=== PATIENT | female | born 1960 | race Caucasian/White ===

== ENCOUNTER 2016-11-11 10:07 | Emergency (ER) | payer OTHER ==
[2016-11-11 10:27] LABS: Bilirubin Negative (Negative); Blood, Urine Small (Negative); Glucose, Urine (Dipstick) >=1000 mg/dL (Negative); Ketone, Urine Negative (Negative); Nitrite Positive (Negative); Protein, Urine (Dipstick) 100 mg/dL (Neg-Trace); Urobilinogen 0.2 mg/dL (0.2-1.0)
[2016-11-11 10:56] LABS: Bacteria/HPF 3+ HPF (None Seen); Transitional Epithelial 0-3 HPF (0-3)
[2016-11-11] MEDS ORDERED: Cephalexin 500 MG CAP ONE (11:07)
--- NOTE | 2016-11-11 11:16 | ERRECORD ---
[facility] EMERGENCY RECORD HPI UTI (10:51 AGRE) CHIEF COMPLAINT: Patient presents for evaluation of urinary tract infection signs or symptoms:. HISTORIAN: History provided by patient, FREGUENT, PAINFUL, FOUL SMELLING, CLOUDY URINE TODAY. NO NAUSEA, VOMITING, FEVER OR CHILLS. NO OTHER SYMPTOMS. LOCATION: No localizing symptoms. QUALITY: Pain is dull in nature, described as BURNING ON URINATION. TIME COURSE: Gradual onset of symptoms, There has been no change in the patient's symptoms over time. ASSOCIATED WITH FEMALE: No associated symptoms. EXACERBATED BY: Patient's condition exacerbated by urination. RELIEVED BY: Patient's condition relieved by nothing. ROS (10:52 AGRE) CONSTITUTIONAL: Historian denies chills, denies fever, denies lethargy, denies malaise. EYES: Historian denies eye pain, denies eye redness. ENT: Historian denies rhinorrhea, denies sinus pain, denies sore throat. CARDIOVASCULAR: Historian denies chest pain, denies dyspnea on exertion. RESPIRATORY: Historian denies cough, denies shortness of breath. GI: Historian denies abdominal pain, denies nausea, denies vomiting. GENITOURINARY FEMALE: Historian reports dysuria, reports frequency, denies hematuria, denies urinary retention, denies vaginal bleeding, denies vaginal discharge, denies vaginal itching. MUSCULOSKELETAL: Historian denies back pain, denies neck pain. SKIN: Negative skin review of systems, Historian denies skin changes, denies skin lesions. NEUROLOGIC: Historian denies headache, denies mental status changes. PSYCHIATRIC: Negative psychiatric review of systems, Historian denies anxiety. PAST MEDICAL HISTORY (10:15 MSPE) MEDICAL HISTORY: Flu vaccine up to date, Tetanus immunization up to date, Past medical history includes musculoskeletal disorder, gout, Past medical history includes neurological disease, peripheral neuropathy, Past medical history includes vascular disease history, deep vein thrombosis, Past medical history includes history of diabetes, Past medical history includes history of hypertension. FEMALE SURGICAL HISTORY: Surgical history of spinal surgery, lumbar,x 3 TUBAL . PSYCHIATRIC HISTORY: No previous psychiatric history. SOCIAL HISTORY: Patient has no smoking history, Patient denies alcohol use, Patient denies drug use. &a-1R&a+25V*p+0X*v7386Y*c202B*c15G*c2P*p-0X&a-25V&a+1R Name: Blanca Leo : 1960 F56 MedRec: [id number] AcctNum: [id number] Prepared: MonNov 11, 2016 11:21 by Interface Page [address] [facility] EMERGENCY RECORD KNOWN ALLERGIES Lyrica: - MAKES HER SWELL AND CONSTIPATION CURRENT MEDICATIONS (10:13 MSPE) atenolol: TABLET : Strength - 25 mg : ORAL Patient Dose: 1 tab(s) Oral once a day. cloNIDine HCl: TABLET : Strength - 0.1 mg : ORAL Patient Dose: 2 tab(s) Oral 2 times a day. metFORMIN: TABLET : Strength - 500 mg : ORAL Patient Dose: 1 tab(s) Oral 2 times a day. NovoLOG: VIAL (ML) : Strength - 100 unit/mL : SUBCUTANEOUS Patient Dose: 10 units Subcutaneous As Needed. gabapentin: TABLET : Strength - 600 mg : ORAL Patient Dose: 2 tab(s) Oral 2 times a day. glimepiride: TABLET : Strength - 4 mg : ORAL Patient Dose: 1 tab(s) Oral 2 times a day. VITAL SIGNS (10:13 MSPE) VITAL SIGNS: BP: 116/56, Pulse: 74, Resp: 18, Temp: 96.4 (Oral), Pain: 2, O2 sat: 98 on Room Air, Time: 11/11/2016 10:13. PHYSICAL EXAM CONSTITUTIONAL: Vital signs reviewed, Patient afebrile, Patient appears non toxic, Patient appears pain free, Patient alert and oriented to person, place and time, NURSES NOTES REVIEWED. (10:52 AGRE) HEAD: Head exam included findings of head atraumatic, normocephalic. (10:52 AGRE) EYES: Eye exam included findings of eyelids normal to inspection, Extraocular muscles intact, Conjunctiva normal, Sclera normal. (10:52 AGRE) ENT: Ear exam normal, Nose exam normal, Mouth exam normal. (10:52 AGRE) NECK: Neck exam included findings of normal range of motion, no meningeal signs. (10:52 AGRE) RESPIRATORY CHEST: Respiratory exam included findings of no respiratory distress, Chest exam included findings of chest movement symmetrical. (10:52 AGRE) CARDIOVASCULAR: Cardiovascular assessment normal, Cardiovascular exam included findings of heart rate regular rate and rhythm, Heart sounds normal. (10:53 AGRE) ABDOMEN FEMALE: Abdominal exam normal, Abdominal exam included findings of abdomen nontender, Bowel sounds normal, Liver normal, &a-1R&a+25V*p+0X*l8016K*c202B*c15G*c2P*p-0X&a-25V&a+1R Name: Blanca Leo : 1960 F56 MedRec: [id number] AcctNum: [id number] Prepared: MonNov 11, 2016 11:21 by Interface Page [address] [facility] EMERGENCY RECORD Spleen normal, no distension, no mass. (10:52 AGRE) BACK: Back exam included findings of normal inspection, range of motion normal, no costovertebral angle tenderness. (10:52 AGRE) UPPER EXTREMITY: Upper extremity exam included findings of inspection normal, Range of motion normal. (10:52 AGRE) LOWER EXTREMITY: Lower extremity exam included findings of inspection normal, Range of motion normal. (10:52 AGRE) NEURO: Neuro exam findings include patient oriented to person, place and time, Speech normal, Gait normal, Memory normal, Cranial nerves intact, no focal motor deficits. (10:52 AGRE) SKIN: Skin exam included findings of skin warm, dry, and normal in color. (10:52 AGRE) PSYCHIATRIC: Psychiatric exam normal, Normal affect. (10:52 AGRE) MEDICATION ADMINISTRATION SUMMARY Drug Name: Pyridium, Dose Ordered: 200 mg, Route: Oral, Status: Canceled, Time: 11:15 11/11/2016, Drug Name: Keflex, Dose Ordered: 1000 mg, Route: Oral, Status: Given, Time: 11:10 11/11/2016, Detailed record available in Medication Service section. DOCTOR NOTES (11:05 AGRE) TEXT: DISCUSSED WITH PATIENT AND FAMILY THE FINDINGS ON EXAM, RESULTS OF URINE, TREATMENT FOR HER UTI, PAIN MANAGEMENT, NEED FOR FOLLOW UP. SHE EXPRESSED UNDERSTANDING AND AGREEMENT. PATIENT STATUS: Patient has improved since arrival to emergency department. PATIENT PLAN: The patient will be discharged. DATA REVIEWED: Lab data reviewed, Discussed with family. PROBLEM LIST No recorded problems DIAGNOSIS (11:02 AGRE) FINAL: PRIMARY: urinary tract infection. PRESCRIPTION (11:03 AGRE) Pyridium: TABLET : 200 mg : ORAL : Quantity: 1 Unit: tab(s) Route: ORAL Schedule: 3 times a day Dispense: 9 May substitute. Refills: No Refills . NOTES: No Refills. Augmentin: TABLET : 875 mg-125 mg : ORAL : Quantity: 1 Unit: tab(s) Route: ORAL Schedule: every 12 hours Dispense: 20 Unit: tab(s) May substitute. Refills: No Refills . NOTES: ^s=No Refills No Refills. DISPOSITION &a-1R&a+25V*p+0X*a4825U*c202B*c15G*c2P*p-0X&a-25V&a+1R Name: Blanca Leo : 1960 F56 MedRec: [id number] AcctNum: [id number] Prepared: MonNov 11, 2016 11:21 by Interface Page [address] [facility] EMERGENCY RECORD PATIENT: Disposition Type: Discharge, Disposition: *Discharge Home, Condition: Improved. (11:02 AGRE) Patient left the department. (11:18 MSPE) Rodriguez: AGRE=MD Ricardo, Tenzin MSPE=DILAN Hughes, Larissa &a-1R&a+25V*p+0X*l3569C*c202B*c15G*c2P*p-0X&a-25V&a+1R Name: Blanca Leo : 1960 F56 MedRec: [id number] AcctNum: [id number] Prepared: MonNov 11, 2016 11:21 by Interface Page 4 of 4 pMD MTDD
--- NOTE | 2016-11-11 11:23 | PICIS ---
[facility] EMERGENCY RECORD TRIAGE (10:12 MSPE) TRIAGE NOTES: possible UTI; c/o cloudy urine. Onset this a.m. Suprapubic discomfort. (10:12 MSPE) PATIENT: NAME: Blanca Leo, AGE: 56, GENDER: female, : Sat 1960, TIME OF GREET: MonNov 11, 2016 10:07, PREFERRED LANGUAGE: Macedonian, ETHNICITY: Not or , ECODE BILLING MAP: [facility], SSN: [id number], Zip Code: [address], KG WEIGHT: [phone], PHONE: , , , PERSON ID: [id number], PCP: Holly WEN ZENIA. (10:12 MSPE) COMPLAINT: PAINFUL URINATION. (10:12 MSPE) ADMISSION: URGENCY: 4 Non Urgent, ADMISSION SOURCE: Home, TRANSPORT: CAR, BED: ER -05. (10:12 MSPE) SIRS SCORING: Heart Rate 55-109 (0), Temp range 93.1-96.7 (1), respiratory rate 12-24 (0), Mental Status altered: no (0), Total SIRS Score 1. (10:15 MSPE) LMP: LMP: Not Applicable. (10:15 MSPE) PROVIDERS: TRIAGE NURSE: Larissa Hughes RN. (10:12 MSPE) PREVIOUS VISIT ALLERGIES: Lyrica. (10:12 MSPE) Lyrica. (10:15 MSPE) KNOWN ALLERGIES Lyrica: - MAKES HER SWELL AND CONSTIPATION CURRENT MEDICATIONS (10:13 MSPE) atenolol: TABLET : Strength - 25 mg : ORAL Patient Dose: 1 tab(s) Oral once a day. cloNIDine HCl: TABLET : Strength - 0.1 mg : ORAL Patient Dose: 2 tab(s) Oral 2 times a day. metFORMIN: TABLET : Strength - 500 mg : ORAL Patient Dose: 1 tab(s) Oral 2 times a day. NovoLOG: VIAL (ML) : Strength - 100 unit/mL : SUBCUTANEOUS Patient Dose: 10 units Subcutaneous As Needed. gabapentin: TABLET : Strength - 600 mg : ORAL Patient Dose: 2 tab(s) Oral 2 times a day. glimepiride: TABLET : Strength - 4 mg : ORAL Patient Dose: 1 tab(s) Oral 2 times a day. VITAL SIGNS (10:13 MSPE) VITAL SIGNS: BP: 116/56, Pulse: 74, Resp: 18, Temp: 96.4 (Oral), Pain: 2, O2 sat: 98 on Room Air, Time: 11/11/2016 10:13. NURSING ASSESSMENT: GENITOURINARY (10:15 MSPE) CONSTITUTIONAL: Patient arrives, personal rolling &a-1R&a+25V*p+0X*q9815J*c202B*c15G*c2P*p-0X&a-25V&a+1R Name: Blanca Leo : 1960 F56 MedRec: [id number] AcctNum: [id number] Prepared: MonNov 11, 2016 11:21 by Interface Page 1 of 6 pMD [facility] EMERGENCY RECORD walker, Gait steady, History obtained from patient, Patient appears comfortable, Patient cooperative, Patient alert, Oriented to person, place and time, Skin warm, Skin dry. PAIN FEMALE: to the suprapubic region. GENITOURINARY FEMALE: Associated with urinary complaints, dysuria, Notes: reportscloudy urine - onset this a.m. NURSING PROCEDURE: DISCHARGE NOTE (11:13 MSPE) DISCHARGE: Patient discharged to home, ambulating with walker, Summary of Care printed/ provided, Discharge instructions given to patient, Simple or moderate discharge teaching performed, Prescriptions given and instructions on side effects given, Above person(s) verbalized understanding of discharge instructions and follow-up care, Patient treated and evaluated by physician. BELONGINGS: Belongings remain with patient. NURSING PROCEDURE: URINE COLLECTION (10:20 MSPE) URINE COLLECTION FEMALE: Urine collection indicated for dysuria, Urine collected by mid-stream clean catch, urine yellow in color, and cloudy, Specimen labeled in the presence of the patient and sent to lab. ORDER DETAILS Order Name: Culture, Urine, Status: Active, Time: 11:00 11/11/2016, User: KEON, - Ordered for: MD Silva Andrea, - Entered by: MD Silva Andrea - MonNov 11, 2016 11:00, - Quantity: 1, Order Name: Urinalysis w/ Rflx Microscopic, Status: Active, Time: 10:17 11/11/2016, User: SOLOMON, - Ordered for: MD Silva Andrea, - Entered by: DILAN Hughes Marilyn - MonNov 11, 2016 10:17, - Quantity: 1. MEDICATION ADMINISTRATION SUMMARY Drug Name: Pyridium, Dose Ordered: 200 mg, Route: Oral, Status: Canceled, Time: 11:15 11/11/2016, Drug Name: Keflex, Dose Ordered: 1000 mg, Route: Oral, Status: Given, Time: 11:10 11/11/2016, Detailed record available in Medication Service section. MEDICATION SERVICE Keflex: Order: Keflex (cephalexin monohydrate) - Dose: 1000 mg : Oral Ordered by: Tenzin Silva MD Entered by: Tenzin Silva MD MonNov 11, 2016 11:00 , &a-1R&a+25V*p+0X*x9606L*c202B*c15G*c2P*p-0X&a-25V&a+1R Name: Blanca Leo : 1960 F56 MedRec: [id number] AcctNum: [id number] Prepared: MonNov 11, 2016 11:21 by Interface Page 2 of 6 pMD [facility] EMERGENCY RECORD Acknowledged by: Larissa Hughes RN MonNov 11, 2016 11:04 Documented as given by: Larissa Hughes RN MonNov 11, 2016 11:10 Patient, Medication, Dose, Route and Time verified prior to administration. Amount given: 1000mg, Site: Medication administered P.O., Patient appears Awake and alert- acceptable, Correct patient, time, route, dose and medication confirmed prior to administration, Patient advised of actions and side-effects prior to administration, Allergies confirmed and medications reviewed prior to administration, Patient in position of comfort, Side rails up, Cart in lowest position. Pyridium: Order: Pyridium (phenazopyridine HCl) - Dose: 200 mg : Oral Ordered by: Tenzin Silva MD Entered by: Tenzin Silva MD MonNov 11, 2016 11:01 , Acknowledged by: Larissa Hughes RN MonNov 11, 2016 11:04. (CANCELED) Pyridium: Originally ordered MonNov 11, 2016 11:01 Cancel reason: Change in medication plan:med unavailable in [place]; Dr Ricardo hamlin. (11:15 MSPE) HPI UTI (10:51 AGRE) CHIEF COMPLAINT: Patient presents for evaluation of urinary tract infection signs or symptoms:. HISTORIAN: History provided by patient, FREGUENT, PAINFUL, FOUL SMELLING, CLOUDY URINE TODAY. NO NAUSEA, VOMITING, FEVER OR CHILLS. NO OTHER SYMPTOMS. LOCATION: No localizing symptoms. QUALITY: Pain is dull in nature, described as BURNING ON URINATION. TIME COURSE: Gradual onset of symptoms, There has been no change in the patient's symptoms over time. ASSOCIATED WITH FEMALE: No associated symptoms. EXACERBATED BY: Patient's condition exacerbated by urination. RELIEVED BY: Patient's condition relieved by nothing. ROS (10:52 AGRE) CONSTITUTIONAL: Historian denies chills, denies fever, denies lethargy, denies malaise. EYES: Historian denies eye pain, denies eye redness. ENT: Historian denies rhinorrhea, denies sinus pain, denies sore throat. CARDIOVASCULAR: Historian denies chest pain, denies dyspnea on exertion. RESPIRATORY: Historian denies cough, denies shortness of breath. GI: Historian denies abdominal pain, denies nausea, denies vomiting. GENITOURINARY FEMALE: Historian reports dysuria, reports frequency, denies hematuria, denies urinary retention, denies vaginal bleeding, denies vaginal discharge, denies vaginal itching. MUSCULOSKELETAL: Historian denies back pain, denies neck pain. &a-1R&a+25V*p+0X*w2592K*c202B*c15G*c2P*p-0X&a-25V&a+1R Name: Blanca Leo : 1960 F56 MedRec: [id number] AcctNum: [id number] Prepared: MonNov 11, 2016 11:21 by Interface Page 3 of 6 pMD [facility] EMERGENCY RECORD SKIN: Negative skin review of systems, Historian denies skin changes, denies skin lesions. NEUROLOGIC: Historian denies headache, denies mental status changes. PSYCHIATRIC: Negative psychiatric review of systems, Historian denies anxiety. PAST MEDICAL HISTORY (10:15 MSPE) MEDICAL HISTORY: Flu vaccine up to date, Tetanus immunization up to date, Past medical history includes musculoskeletal disorder, gout, Past medical history includes neurological disease, peripheral neuropathy, Past medical history includes vascular disease history, deep vein thrombosis, Past medical history includes history of diabetes, Past medical history includes history of hypertension. FEMALE SURGICAL HISTORY: Surgical history of spinal surgery, lumbar,x 3 TUBAL . PSYCHIATRIC HISTORY: No previous psychiatric history. SOCIAL HISTORY: Patient has no smoking history, Patient denies alcohol use, Patient denies drug use. PHYSICAL EXAM CONSTITUTIONAL: Vital signs reviewed, Patient afebrile, Patient appears non toxic, Patient appears pain free, Patient alert and oriented to person, place and time, NURSES NOTES REVIEWED. (10:52 AGRE) HEAD: Head exam included findings of head atraumatic, normocephalic. (10:52 AGRE) EYES: Eye exam included findings of eyelids normal to inspection, Extraocular muscles intact, Conjunctiva normal, Sclera normal. (10:52 AGRE) ENT: Ear exam normal, Nose exam normal, Mouth exam normal. (10:52 AGRE) NECK: Neck exam included findings of normal range of motion, no meningeal signs. (10:52 AGRE) RESPIRATORY CHEST: Respiratory exam included findings of no respiratory distress, Chest exam included findings of chest movement symmetrical. (10:52 AGRE) CARDIOVASCULAR: Cardiovascular assessment normal, Cardiovascular exam included findings of heart rate regular rate and rhythm, Heart sounds normal. (10:53 AGRE) ABDOMEN FEMALE: Abdominal exam normal, Abdominal exam included findings of abdomen nontender, Bowel sounds normal, Liver normal, Spleen normal, no distension, no mass. (10:52 AGRE) BACK: Back exam included findings of normal inspection, range of motion normal, no costovertebral angle tenderness. (10:52 AGRE) UPPER EXTREMITY: Upper extremity exam included findings of inspection normal, Range of motion normal. (10:52 AGRE) LOWER EXTREMITY: Lower extremity exam included findings of inspection normal, Range of motion normal. (10:52 AGRE) &a-1R&a+25V*p+0X*w6899K*c202B*c15G*c2P*p-0X&a-25V&a+1R Name: Blanca Leo : 1960 F56 MedRec: [id number] AcctNum: [id number] Prepared: MonNov 11, 2016 11:21 by Interface Page 4 of 6 pMD [facility] EMERGENCY RECORD NEURO: Neuro exam findings include patient oriented to person, place and time, Speech normal, Gait normal, Memory normal, Cranial nerves intact, no focal motor deficits. (10:52 AGRE) SKIN: Skin exam included findings of skin warm, dry, and normal in color. (10:52 AGRE) PSYCHIATRIC: Psychiatric exam normal, Normal affect. (10:52 AGRE) LAB INTERPRETATION (11: AGRE) INTERPRETATION: Urinalysis abnormal, positive for leukocytes, positive for erythrocytes, positive for nitrites, positive for bacteria, positive for glucose, positive for protein. EVENTS TRANSFER: Triage to Emergency Emergency Room -05. (MonNov 11, 2016 10:12 MSPE) Removed from Emergency Emergency Room -05. (11:18 MSPE) DOCTOR NOTES (11: AGRE) TEXT: DISCUSSED WITH PATIENT AND FAMILY THE FINDINGS ON EXAM, RESULTS OF URINE, TREATMENT FOR HER UTI, PAIN MANAGEMENT, NEED FOR FOLLOW UP. SHE EXPRESSED UNDERSTANDING AND AGREEMENT. PATIENT STATUS: Patient has improved since arrival to emergency department. PATIENT PLAN: The patient will be discharged. DATA REVIEWED: Lab data reviewed, Discussed with family. PROBLEM LIST No recorded problems DIAGNOSIS (11: AGRE) FINAL: PRIMARY: urinary tract infection. DISPOSITION PATIENT: Disposition Type: Discharge, Disposition: *Discharge Home, Condition: Improved. (11: AGRE) Patient left the department. (11:18 MSPE) INSTRUCTION (11:04 AGRE) DISCHARGE: URINARY TRACT INFECTION CYSTITIS FEMALE ADULT. FOLLOWUP: Holly WEN, CHARU, [facility], [address] [place] [address], [address], [facility] [address], [phone]. SPECIAL: MAKE SURE TO DRINK LOTS OF SUGAR FREE FLUIDS. START YOUR ANTIBIOTICS THIS AFTERNOON. FOLLOW UP WITH YOUR PRIMARY CARE PHYSICIAN FOR RECHECK ON MONDAY. SEE A PHYSICIAN SOONER IF WORSENING OR IF NEW SYMPTOMS DEVELOP. PRESCRIPTION (11:03 AGRE) Pyridium: TABLET : 200 mg : ORAL : Quantity: 1 Unit: tab(s) Route: ORAL Schedule: 3 times a day Dispense: 9 &a-1R&a+25V*p+0X*g0088O*c202B*c15G*c2P*p-0X&a-25V&a+1R Name: Blanca Leo : 1960 F56 MedRec: [id number] AcctNum: [id number] Prepared: MonNov 11, 2016 11:21 by Interface Page 5 of 6 pMD [facility] EMERGENCY RECORD May substitute. Refills: No Refills . NOTES: No Refills. Augmentin: TABLET : 875 mg-125 mg : ORAL : Quantity: 1 Unit: tab(s) Route: ORAL Schedule: every 12 hours Dispense: 20 Unit: tab(s) May substitute. Refills: No Refills . NOTES: ^s=No Refills No Refills. IMAGING (11:16 MSPE) *DISCHARGE INSTRUCTIONS RECEIPT: Image captured from scanner. *SUPPLY CHARGE SHEET: Image captured from scanner. ADMIN (11:08 [facility] DIGITAL SIGNATURE: MD Silva Andrea. Rodriguez: AGRE=MD Silva Andrea MSPE=DILAN Hughes, Larissa &a-1R&a+25V*p+0X*x0431Z*c202B*c15G*c2P*p-0X&a-25V&a+1R Name: Blanca Leo : 1960 F56 MedRec: [id number] AcctNum: [id number] Prepared: MonNov 11, 2016 11:21 by Interface Page 6 of 6 pMD MTDD
== END 2016-11-11 11:13 | disposition home or self-care (01) ==
LOC: NAV ERS 10:07
DX: N39.0 Urinary tract infection, site not specified (principal); E11.9 Type 2 diabetes mellitus without complications; I10 Essential (primary) hypertension; G62.9 Polyneuropathy, unspecified; Z86.718 Personal history of other venous thrombosis and embolism
CPT/HCPCS: 81003; 81015; 87077; 87086; 87186; 99283

== ENCOUNTER 2016-11-29 09:26 | Emergency (ER) | payer OTHER ==
[2016-11-29] MEDS ORDERED: Bacitracin Zinc 1 Packet ONE (09:45)
[2016-11-29] MEDS ORDERED: Clindamycin 150 MG CAP ONE (09:58)
== END 2016-11-29 10:03 | disposition home or self-care (01) ==
LOC: NAV ERS 09:26
DX: L02.511 Cutaneous abscess of right hand (principal); E11.9 Type 2 diabetes mellitus without complications; I10 Essential (primary) hypertension; Z79.84 Long term (current) use of oral hypoglycemic drugs; Z79.4 Long term (current) use of insulin
CPT/HCPCS: 10060

== ENCOUNTER 2016-12-01 20:30 | Emergency (ER) | payer OTHER ==
--- NOTE | 2016-12-01 21:46 | RAD ---
FINGERS RIGHT HAND: 12/01/16 Fourth finger evaluated. HISTORY: Abscess fourth finger. FINDINGS: Soft tissue swelling of the fourth finger is seen most prominent at the PIP joint. No osseous abnorm ality identified. IMPRESSION: Soft tissue swelling is noted without evidence of osseous abnormality. POS: [facility]
[2016-12-01] MEDS ORDERED: Sodium Chloride 0.9% 250 ML 250 ML ONE (21:53)
[2016-12-01] MEDS ORDERED: Insulin Regular 300 UNITS/3 ML VIAL ONE (22:17)
[2016-12-01 22:20] LABS: #Eosinphils 0.1 thou/uL (0.0-0.7); #Lymphocytes 1.3 thou/uL (1.20-3.40); #Monocytes 0.4 thou/uL (0.11-0.59); #Neutrophils 5.8 thou/uL (1.40-6.50); %Basophils 0.6 % (0.0-1.0); %Eosinophils 1.9 % (0.0-10.0); %Lymphocytes 16.7 % (21.0-51.0); %Monocytes 5.7 % (0.0-10.0); Hematocrit 36.3 % (36.0-47.0); Mean Platelet Volume 7.4 fL (7.4-10.4); Red Blood Cell (RBC) Count 4.13 mill/uL (4.20-5.40); White Blood Cell (WBC) Count 7.7 thou/uL (4.8-10.8)
[2016-12-01 22:38] LABS: Anion Gap 19 mmol/L (10-20); BUN (Urea Nitrogen) 45 mg/dL (9.8-20.1); Calc. Creatinine Clearance 0 mL/min (70-130); Calcium 9.8 mg/dL (7.8-10.44); Carbon Dioxide 23 mmol/L (22-29); Chloride 99 mmol/L (98-107); Estimated GFR-MDRD 35
[2016-12-01] MEDS ORDERED: Colchicine 0.6 MG TAB ONE (23:12)
[2016-12-01] MEDS ORDERED: predniSONE 20 MG TAB ONE (23:12)
== END 2016-12-01 23:45 | disposition home or self-care (01) ==
LOC: NAV ERS 20:30
DX: L02.511 Cutaneous abscess of right hand (principal); M1A.9XX1 Chronic gout, unspecified, with tophus (tophi); I10 Essential (primary) hypertension; E79.0 Hyperuricemia without signs of inflammatory arthritis and tophaceous disease; E11.65 Type 2 diabetes mellitus with hyperglycemia; Z79.84 Long term (current) use of oral hypoglycemic drugs; Z79.899 Other long term (current) drug therapy
CPT/HCPCS: 36416; 80048; 84550; 85025; 87070; 87205; 96365; 96375; 96376; 36415-59; J1815; J3370; J7050; J7506

== ENCOUNTER 2017-01-08 14:03 | Emergency (ER) | payer OTHER ==
[2017-01-08 14:48] LABS: #Basophils 0.1 thou/uL (0.0-0.2); #Eosinphils 0.3 thou/uL (0.0-0.7); #Lymphocytes 1.4 thou/uL (1.20-3.40); #Monocytes 0.5 thou/uL (0.11-0.59); #Neutrophils 3.9 thou/uL (1.40-6.50); %Basophils 0.9 % (0.0-1.0); %Eosinophils 4.5 % (0.0-10.0); %Lymphocytes 23.2 % (21.0-51.0); %Monocytes 8.1 % (0.0-10.0); %Neutrophils 63.3 % (42.0-75.0); Hemoglobin 12.1 g/dL (12.0-16.0); Mean Corpuscular HGB CONC 34.4 g/dL (32.0-36.0); Mean Corpuscular Hemoglobin 30.7 pg (27.0-31.0); Mean Corpuscular Volume 89.2 fl (81.0-99.0); Platelet Count 210 thou/uL (130-400); RBC Distribution Width 13.4 % (11.5-14.5); Red Blood Cell (RBC) Count 3.94 mill/uL (4.20-5.40); White Blood Cell (WBC) Count 6.1 thou/uL (4.8-10.8)
[2017-01-08 15:05] LABS: ALT (SGPT) 28 U/L (0-55); AST (SGOT) 15 U/L (5-34); Albumin 3.8 g/dL (3.5-5.0); Alkaline Phosphatase 75 U/L (40-150); Anion Gap 15 mmol/L (10-20); BUN (Urea Nitrogen) 27 mg/dL (9.8-20.1); Bilirubin, Total 0.6 mg/dL (0.2-1.2); Calc. Creatinine Clearance 0 mL/min (70-130); Calcium 9.1 mg/dL (7.8-10.44); Carbon Dioxide 24 mmol/L (22-29); Chloride 108 mmol/L (98-107); Estimated GFR-MDRD 49; Globulin 2.4 g/dL (2.4-3.5); Glucose 104 mg/dL (70-105); Potassium 3.7 mmol/L (3.5-5.1); Protein, Total 6.2 g/dL (6.0-8.3); Sodium 143 mmol/L (136-145)
[2017-01-08 15:07] LABS: CKMB 5.4 ng/mL (0-6.6)
[2017-01-08 15:08] LABS: Bilirubin Negative (Negative); Blood, Urine Trace (Negative); Clarity Hazy (Clear); Glucose, Urine (Dipstick) Negative (Negative); Leukocyte Negative (Negative); Nitrite Negative (Negative); Protein, Urine (Dipstick) 30 mg/dL (Neg-Trace); Specific Gravity, Urine 1.015 (1.005-1.030); Urobilinogen 0.2 mg/dL (0.2-1.0); pH, Urine 5.5 (5.0-9.0)
[2017-01-08 15:13] LABS: Bacteria/HPF 1+ HPF (None Seen); RBC/HPF 0-3 HPF (0-3); Squamous Epithelial 21-50 HPF (0-3); WBC/HPF None Seen HPF (0-3)
--- NOTE | 2017-01-08 15:21 | RAD ---
TWO VIEWS CHEST: Date: 01-08-17 Provided Clinical History: Dizziness. FINDINGS: Comparison 04-29-16. Cardiac and mediastinal silhouette is unchanged in appearance. No focal consolidation, pleural fluid or pneumothorax apparent. IMPRESSION: Cardiomegaly without evidence for an acute cardiopulmonary process. POS: [facility]
== END 2017-01-08 15:53 | disposition home or self-care (01) ==
LOC: NAV ERS 14:03
DX: R42 Dizziness and giddiness (principal); I10 Essential (primary) hypertension; G62.9 Polyneuropathy, unspecified; Z86.718 Personal history of other venous thrombosis and embolism; Z79.4 Long term (current) use of insulin; Z79.01 Long term (current) use of anticoagulants; Z79.899 Other long term (current) drug therapy
CPT/HCPCS: 36415; 71020; 80053; 81003; 81015; 82553; 83880; 84484; 85025; 87077; 87086; 93005; 94760

== ENCOUNTER 2017-11-12 09:22 | Emergency (ER) | payer OTHER ==
[2017-11-12] MEDS ORDERED: Bacitracin Zinc 1 Packet ONE (09:49)
== END 2017-11-12 10:04 | disposition home or self-care (01) ==
LOC: NAV ERS 09:22
DX: S90.821A Blister (nonthermal), right foot, initial encounter (principal); I10 Essential (primary) hypertension; E11.40 Type 2 diabetes mellitus with diabetic neuropathy, unspecified; M19.90 Unspecified osteoarthritis, unspecified site; E78.5 Hyperlipidemia, unspecified; Z79.82 Long term (current) use of aspirin; Z79.4 Long term (current) use of insulin; Z79.899 Other long term (current) drug therapy; X58.XXXA Exposure to other specified factors, initial encounter
CPT/HCPCS: 99283

== ENCOUNTER 2017-12-23 09:05 | Emergency (ER) | payer OTHER ==
[2017-12-23 10:21] LABS: Hemoglobin 11.2 g/dL (12.0-16.0); Mean Corpuscular HGB CONC 31.9 g/dL (32.0-36.0); Mean Corpuscular Hemoglobin 28.2 pg (27.0-31.0); Mean Corpuscular Volume 88.5 fl (81.0-99.0); Mean Platelet Volume 7.9 fL (7.4-10.4); Platelet Count 168 thou/uL (130-400); RBC Distribution Width 13.8 % (11.5-14.5); Red Blood Cell (RBC) Count 3.96 mill/uL (4.20-5.40); White Blood Cell (WBC) Count 9.1 thou/uL (4.8-10.8)
[2017-12-23 10:33] LABS: Eosinophils 1 % (0-10); Lymphocytes 13 % (21-51); MDiff Complete? YES; Monocytes 9 % (0-10); Neutrophil 77 % (42-75); PLT Morphology Comment Appears Adequate; RBC Morphology Normal
[2017-12-23 10:35] LABS: Bilirubin Negative (Negative); Blood, Urine Moderate (Negative); Clarity Clear (Clear); Glucose, Urine (Dipstick) Negative (Negative); Leukocyte Small (Negative); Nitrite Positive (Negative); Protein, Urine (Dipstick) > or equal to 300 mg/dL (Neg-Trace); Urobilinogen 0.2 mg/dL (0.2-1.0); pH, Urine 7.5 (5.0-9.0)
[2017-12-23 10:37] LABS: CKMB 3.6 ng/mL (0-6.6); Troponin I Less than 0.010 ng/mL (< 0.028)
[2017-12-23 10:40] LABS: ALT (SGPT) 19 U/L (8-55); AST (SGOT) 16 U/L (5-34); Albumin 3.9 g/dL (3.5-5.0); Alkaline Phosphatase 84 U/L (40-150); Anion Gap 16 mmol/L (10-20); BUN (Urea Nitrogen) 45 mg/dL (9.8-20.1); Bilirubin, Total 0.7 mg/dL (0.2-1.2); CK (CPK) 75 U/L (29-168); Calc. Creatinine Clearance 0 mL/min (70-130); Calcium 9.9 mg/dL (7.8-10.44); Carbon Dioxide 28 mmol/L (22-29); Chloride 103 mmol/L (98-107); Estimated GFR-MDRD 38; Globulin 2.6 g/dL (2.4-3.5); Glucose 108 mg/dL (70-105); Lipase 29 U/L (8-78); Potassium 4.2 mmol/L (3.5-5.1); Protein, Total 6.5 g/dL (6.0-8.3); Sodium 143 mmol/L (136-145)
[2017-12-23 10:53] LABS: Bacteria/HPF 3+ HPF (None Seen); Squamous Epithelial 0-3 HPF (0-3)
[2017-12-23] MEDS ORDERED: HYDROcodone/Acetaminophen 5/325 mg Tablet ONE (10:54)
[2017-12-23] MEDS ORDERED: Sulfameth/Trimethoprim DS 800-160mg TAB ONE (10:55)
--- NOTE | 2017-12-23 11:59 | RAD ---
PORTABLE CHEST: Date: 12/23/17 HISTORY: Syncope. Dizziness. History of embolus in right leg. COMPARISON: 03/30/17. FINDINGS: Heart size appears slightly enlarged. Mediastinal structures are unremarkable. Lungs are clear of inf iltrates. No signs of failure. IMPRESSION: Cardiomegaly. POS: [facility]
== END 2017-12-23 11:31 ==
LOC: NAV ERS 09:05
DX: N39.0 Urinary tract infection, site not specified (principal); E11.40 Type 2 diabetes mellitus with diabetic neuropathy, unspecified; M19.90 Unspecified osteoarthritis, unspecified site; E78.5 Hyperlipidemia, unspecified; I10 Essential (primary) hypertension; Z79.82 Long term (current) use of aspirin; Z79.891 Long term (current) use of opiate analgesic; Z79.84 Long term (current) use of oral hypoglycemic drugs; Z79.899 Other long term (current) drug therapy; Z79.01 Long term (current) use of anticoagulants; Z79.52 Long term (current) use of systemic steroids
CPT/HCPCS: 71045; 80053; 81003; 81015; 82553; 83690; 83880; 84484; 85025; 93005

== ENCOUNTER 2018-04-10 11:45 | Emergency (ER) | payer OTHER ==
[2018-04-10 12:13] LABS: Bilirubin Negative (Negative); Blood, Urine Moderate (Negative); Clarity Cloudy (Clear); Glucose, Urine (Dipstick) 500 mg/dL (Negative); Leukocyte Moderate (Negative); Nitrite Negative (Negative); Protein, Urine (Dipstick) > or equal to 300 mg/dL (Neg-Trace); Specific Gravity, Urine 1.025 (1.005-1.030); Urobilinogen 0.2 mg/dL (0.2-1.0); pH, Urine 5.5 (5.0-9.0)
[2018-04-10 12:17] LABS: Bacteria/HPF 3+ HPF (None Seen); RBC/HPF 0-3 HPF (0-3); Squamous Epithelial 0-3 HPF (0-3)
== END 2018-04-10 12:30 | disposition home or self-care (01) ==
LOC: NAV ERS 11:45
DX: N30.01 Acute cystitis with hematuria (principal); E11.40 Type 2 diabetes mellitus with diabetic neuropathy, unspecified; M19.90 Unspecified osteoarthritis, unspecified site; I10 Essential (primary) hypertension; E78.5 Hyperlipidemia, unspecified; Z86.718 Personal history of other venous thrombosis and embolism; Z79.899 Other long term (current) drug therapy; Z79.82 Long term (current) use of aspirin; Z79.4 Long term (current) use of insulin
CPT/HCPCS: 81003; 81015; 87077; 87086; 87186; 99283

== ENCOUNTER 2018-07-13 09:21 | Emergency (ER) | payer OTHER ==
--- NOTE | 2018-07-13 10:56 | RAD ---
AP PELVIS: HISTORY: Fall, pelvic pain, hip pain. FINDINGS: No definite fracture or dislocation is seen in the visualized portions of the bones. There are degen erative changes in the lower lumbar spine. The lateral aspects of the proximal femurs have been excl uded from the film. POS: [facility]
--- NOTE | 2018-07-13 11:00 | RAD ---
THREE VIEWS SACRUM AND COCCYX: COMPARISON: None. HISTORY: Fall last week with sacral and coccyx pain. FINDINGS: Three views of the sacrum/coccyx show no evidence of displaced sacral or coccygeal fracture. There i s slight subluxation of the coccyx in relation to the distal tip of the sacrum, but this is likely no rmal for this patient. The sacral alae are symmetric. The sacral alae joints are unremarkable. Degenerative changes are seen in the lumbar spine. IMPRESSION: No evidence of acute osseous abnormality. POS: [facility]
== END 2018-07-13 11:41 | disposition home or self-care (01) ==
LOC: NAV ERS 09:21
DX: S33.2XXA Dislocation of sacroiliac and sacrococcygeal joint, initial encounter (principal); E11.40 Type 2 diabetes mellitus with diabetic neuropathy, unspecified; M19.90 Unspecified osteoarthritis, unspecified site; I10 Essential (primary) hypertension; E78.5 Hyperlipidemia, unspecified; Z86.718 Personal history of other venous thrombosis and embolism; Z79.01 Long term (current) use of anticoagulants; Z79.82 Long term (current) use of aspirin; Z79.899 Other long term (current) drug therapy; Z79.4 Long term (current) use of insulin; Z79.891 Long term (current) use of opiate analgesic; W18.30XA Fall on same level, unspecified, initial encounter
CPT/HCPCS: 72170; 72220

== ENCOUNTER 2018-08-05 10:25 | Emergency (ER) | payer OTHER ==
[2018-08-05 10:58] LABS: Bilirubin Negative (Negative); Blood, Urine Moderate (Negative); Clarity Clear (Clear); Glucose, Urine (Dipstick) 500 mg/dL (Negative); Leukocyte Negative (Negative); Nitrite Negative (Negative); Protein, Urine (Dipstick) > or equal to 300 mg/dL (Neg-Trace); Specific Gravity, Urine 1.025 (1.005-1.030); Urobilinogen 0.2 mg/dL (0.2-1.0)
[2018-08-05 11:21] LABS: Bacteria/HPF Rare-Few HPF (None Seen)
[2018-08-05 11:49] LABS: #Eosinphils 0.3 thou/uL (0.0-0.7); #Lymphocytes 1.1 thou/uL (1.20-3.40); #Monocytes 0.5 thou/uL (0.11-0.59); #Neutrophils 6.8 thou/uL (1.40-6.50); %Basophils 0.3 % (0.0-1.0); %Eosinophils 2.9 % (0.0-10.0); %Lymphocytes 13.1 % (21.0-51.0); %Monocytes 5.8 % (0.0-10.0); %Neutrophils 77.9 % (42.0-75.0); Hemoglobin 10.1 g/dL (12.0-16.0); Mean Corpuscular HGB CONC 31.8 g/dL (32.0-36.0); Mean Corpuscular Hemoglobin 29.1 pg (27.0-31.0); Mean Corpuscular Volume 91.8 fL (78.0-98.0); Platelet Count 172 thou/uL (130-400); RBC Distribution Width 14.1 % (11.5-14.5); Red Blood Cell (RBC) Count 3.46 mill/uL (4.20-5.40); White Blood Cell (WBC) Count 8.8 thou/uL (4.8-10.8)
[2018-08-05 12:13] LABS: ALT (SGPT) 28 U/L (8-55); AST (SGOT) 14 U/L (5-34); Albumin 3.8 g/dL (3.5-5.0); Alkaline Phosphatase 85 U/L (40-150); Anion Gap 13 mmol/L (10-20); BUN (Urea Nitrogen) 28 mg/dL (9.8-20.1); Bilirubin, Total 0.7 mg/dL (0.2-1.2); Calc. Creatinine Clearance 0 mL/min (70-130); Calcium 9.7 mg/dL (7.8-10.44); Carbon Dioxide 27 mmol/L (22-29); Chloride 106 mmol/L (98-107); Estimated GFR-MDRD 56; Globulin 2.1 g/dL (2.4-3.5); Glucose 158 mg/dL (70-105); Potassium 3.7 mmol/L (3.5-5.1); Protein, Total 5.9 g/dL (6.0-8.3); Sodium 142 mmol/L (136-145)
[2018-08-05] MEDS ORDERED: Sulfameth/Trimethoprim DS 800-160mg TAB ONE ×2 (12:46→12:47)
[2018-08-05] MEDS ORDERED: Sulfameth/Trimethoprim DS 800-160mg TAB PO SCH (13:00)
== END 2018-08-05 13:04 | disposition home or self-care (01) ==
LOC: NAV ERS 10:25
DX: I10 Essential (primary) hypertension (principal); N39.0 Urinary tract infection, site not specified; M19.90 Unspecified osteoarthritis, unspecified site; E11.40 Type 2 diabetes mellitus with diabetic neuropathy, unspecified; Z86.718 Personal history of other venous thrombosis and embolism; Z79.4 Long term (current) use of insulin; Z79.891 Long term (current) use of opiate analgesic; Z79.01 Long term (current) use of anticoagulants; Z79.899 Other long term (current) drug therapy
CPT/HCPCS: 36415; 80053; 81003; 81015; 85025; 93005

== ENCOUNTER 2018-11-24 10:50 | Emergency (ER) | payer OTHER ==
[2018-11-24 11:21] LABS: Bilirubin Negative (Negative); Blood, Urine Moderate (Negative); Clarity Cloudy (Clear); Glucose, Urine (Dipstick) 100 mg/dL (Negative); Leukocyte Large (Negative); Nitrite Negative (Negative); Protein, Urine (Dipstick) > or equal to 300 mg/dL (Neg-Trace); Specific Gravity, Urine 1.025 (1.005-1.030); pH, Urine 6.5 (5.0-9.0)
[2018-11-24 11:29] LABS: Bacteria/HPF 4+ HPF (None Seen)
[2018-11-24] MEDS ORDERED: Sulfameth/Trimethoprim DS 800-160mg TAB ONE (11:43)
== END 2018-11-24 11:56 | disposition home or self-care (01) ==
LOC: NAV ERS 10:50
DX: N39.0 Urinary tract infection, site not specified (principal); E11.40 Type 2 diabetes mellitus with diabetic neuropathy, unspecified; M19.90 Unspecified osteoarthritis, unspecified site; I10 Essential (primary) hypertension; Z79.4 Long term (current) use of insulin; Z79.01 Long term (current) use of anticoagulants; Z79.899 Other long term (current) drug therapy; Z86.718 Personal history of other venous thrombosis and embolism
CPT/HCPCS: 81003; 81015; 87077; 87086; 87186; 99283

== ENCOUNTER 2018-12-01 11:52 | Emergency (ER) | payer OTHER | END 2018-12-01 12:40 | disposition home or self-care (01) | LOC: NAV ERS 11:52 | DX: S80.11XA Contusion of right lower leg, initial encounter (principal); E11.40 Type 2 diabetes mellitus with diabetic neuropathy, unspecified; M19.90 Unspecified osteoarthritis, unspecified site; I10 Essential (primary) hypertension; E78.5 Hyperlipidemia, unspecified; Z86.718 Personal history of other venous thrombosis and embolism; Z79.82 Long term (current) use of aspirin; Z79.01 Long term (current) use of anticoagulants; Z79.899 Other long term (current) drug therapy; Z79.891 Long term (current) use of opiate analgesic; W22.8XXA Striking against or struck by other objects, initial encounter | CPT/HCPCS: 99283 ==

== ENCOUNTER 2018-12-16 09:30 | Emergency (ER) | payer OTHER ==
[2018-12-16] MEDS ORDERED: Triple Antibiotic Oint 1 GM Packet ONE (09:47)
== END 2018-12-16 09:52 | disposition home or self-care (01) ==
LOC: NAV ERS 09:30
DX: S81.801D Unspecified open wound, right lower leg, subsequent encounter (principal); E11.40 Type 2 diabetes mellitus with diabetic neuropathy, unspecified; M19.90 Unspecified osteoarthritis, unspecified site; I10 Essential (primary) hypertension; E78.5 Hyperlipidemia, unspecified; Z86.718 Personal history of other venous thrombosis and embolism; Z79.82 Long term (current) use of aspirin; Z79.01 Long term (current) use of anticoagulants; Z79.899 Other long term (current) drug therapy; W20.8XXD Other cause of strike by thrown, projected or falling object, subsequent encounter
CPT/HCPCS: 99282

== ENCOUNTER 2019-03-08 20:09 | Emergency (ER) | payer OTHER ==
[2019-03-08] MEDS ORDERED: Acetaminophen 500 MG TAB ONE (20:24)
[2019-03-08] MEDS ORDERED: Ondansetron ODT 4 MG TAB ONE (20:24)
[2019-03-08] MEDS ORDERED: Cephalexin 250 MG CAP ONE (20:24)
[2019-03-08] MEDS ORDERED: Sulfameth/Trimethoprim DS 800-160mg TAB ONE (20:24)
== END 2019-03-08 20:34 | disposition home or self-care (01) ==
LOC: NAV ERS 20:09
DX: N76.4 Abscess of vulva (principal); I10 Essential (primary) hypertension; M19.90 Unspecified osteoarthritis, unspecified site; E78.5 Hyperlipidemia, unspecified; E11.40 Type 2 diabetes mellitus with diabetic neuropathy, unspecified; Z79.891 Long term (current) use of opiate analgesic; Z79.01 Long term (current) use of anticoagulants; Z79.899 Other long term (current) drug therapy; Z79.82 Long term (current) use of aspirin; Z86.718 Personal history of other venous thrombosis and embolism; Z79.4 Long term (current) use of insulin
CPT/HCPCS: 99282; Q0162

== ENCOUNTER 2019-07-24 12:07 | Emergency (ER) | payer OTHER ==
[2019-07-24] MEDS ORDERED: Lidocaine 1% (PF) 30 ML VIAL ONE (12:22)
[2019-07-24] MEDS ORDERED: Triple Antibiotic Oint 1 GM Packet ONE (13:14)
== END 2019-07-24 13:22 | disposition home or self-care (01) ==
LOC: NAV ERS 12:07
DX: S81.812A Laceration without foreign body, left lower leg, initial encounter (principal); I10 Essential (primary) hypertension; E11.40 Type 2 diabetes mellitus with diabetic neuropathy, unspecified; M19.90 Unspecified osteoarthritis, unspecified site; E78.5 Hyperlipidemia, unspecified; E78.00 Pure hypercholesterolemia, unspecified; Z79.899 Other long term (current) drug therapy; Z86.711 Personal history of pulmonary embolism; Z79.82 Long term (current) use of aspirin; W20.8XXA Other cause of strike by thrown, projected or falling object, initial encounter
CPT/HCPCS: 12002; J2001

== ENCOUNTER 2019-08-01 12:54 | Emergency (ER) | payer OTHER | END 2019-08-01 13:47 | disposition home or self-care (01) | LOC: NAV ERS 12:54 | DX: S81.812D Laceration without foreign body, left lower leg, subsequent encounter (principal); E11.40 Type 2 diabetes mellitus with diabetic neuropathy, unspecified; M19.90 Unspecified osteoarthritis, unspecified site; E78.5 Hyperlipidemia, unspecified; E78.00 Pure hypercholesterolemia, unspecified; I10 Essential (primary) hypertension; Z79.899 Other long term (current) drug therapy; Z79.4 Long term (current) use of insulin; Z86.718 Personal history of other venous thrombosis and embolism; Z79.82 Long term (current) use of aspirin; W20.8XXD Other cause of strike by thrown, projected or falling object, subsequent encounter | CPT/HCPCS: 99282 ==

== ENCOUNTER 2019-08-04 11:00 | Emergency (ER) | payer OTHER | END 2019-08-04 11:25 | disposition home or self-care (01) | LOC: NAV ERS 11:00 | DX: S81.812D Laceration without foreign body, left lower leg, subsequent encounter (principal); E11.40 Type 2 diabetes mellitus with diabetic neuropathy, unspecified; E78.5 Hyperlipidemia, unspecified; E78.00 Pure hypercholesterolemia, unspecified; I10 Essential (primary) hypertension; M19.90 Unspecified osteoarthritis, unspecified site; Z86.718 Personal history of other venous thrombosis and embolism; Z79.82 Long term (current) use of aspirin; Z79.01 Long term (current) use of anticoagulants; Z79.899 Other long term (current) drug therapy ==

== ENCOUNTER 2019-08-13 10:09 | Emergency (ER) | payer OTHER ==
[2019-08-13] MEDS ORDERED: Cephalexin 250 MG CAP ONE (10:39)
[2019-08-13] MEDS ORDERED: Sulfameth/Trimethoprim DS 800-160mg TAB ONE (10:39)
== END 2019-08-13 10:49 | disposition home or self-care (01) ==
LOC: NAV ERS 10:09
DX: L03.116 Cellulitis of left lower limb (principal); E11.40 Type 2 diabetes mellitus with diabetic neuropathy, unspecified; Z86.718 Personal history of other venous thrombosis and embolism; E78.5 Hyperlipidemia, unspecified; E78.00 Pure hypercholesterolemia, unspecified; I10 Essential (primary) hypertension; Z79.899 Other long term (current) drug therapy; Z79.82 Long term (current) use of aspirin; Z79.01 Long term (current) use of anticoagulants; Z79.4 Long term (current) use of insulin
CPT/HCPCS: 99283

== ENCOUNTER 2021-04-06 11:23 | Emergency (ER) | payer OTHER ==
[2021-04-06 11:55] LABS: Bilirubin Negative (Negative); Blood, Urine Moderate (Negative); Clarity Cloudy (Clear); Glucose, Urine (Dipstick) 100 mg/dL (Negative); Ketone, Urine Trace mg/dL (Negative); Leukocyte Large (Negative); Nitrite Positive (Negative); Protein, Urine (Dipstick) > or equal to 300 mg/dL (Neg-Trace); Urobilinogen 0.2 mg/dL (Less than 2); pH, Urine 5.5 (5.0-9.0)
[2021-04-06 12:06] LABS: Bacteria/HPF 1+ HPF (None Seen); Squamous Epithelial 0-3 HPF (0-3); WBC/HPF Greater than 50 HPF (0-3)
== END 2021-04-06 12:18 | disposition home or self-care (01) ==
LOC: NAV ERS 11:23
DX: N39.0 Urinary tract infection, site not specified (principal); E11.9 Type 2 diabetes mellitus without complications; E78.5 Hyperlipidemia, unspecified; Z86.73 Personal history of transient ischemic attack (TIA), and cerebral infarction without residual deficits; D64.9 Anemia, unspecified; Z79.82 Long term (current) use of aspirin; Z79.899 Other long term (current) drug therapy
CPT/HCPCS: 81003; 81015; 87077; 87086; 87186; 99283

== ENCOUNTER 2021-10-22 18:17 | Emergency (ER) | payer OTHER ==
[2021-10-22] MEDS ORDERED: cloNIDine 0.2 MG TAB ONE (18:48)
[2021-10-22] MEDS ORDERED: Ondansetron ODT 4 MG TAB ONE (18:49)
[2021-10-22] MEDS ORDERED: cloNIDine 0.1 MG TAB ONE (18:49)
[2021-10-22 19:12] LABS: #Eosinphils 0.2 thou/uL (0.0-0.7); #Lymphocytes 0.6 thou/uL (1.20-3.40); #Monocytes 0.4 thou/uL (0.11-0.59); #Neutrophils 3.5 thou/uL (1.40-6.50); %Basophils 0.4 % (0.0-1.0); %Eosinophils 4.9 % (0.0-10.0); %Lymphocytes 13.4 % (21.0-51.0); %Monocytes 7.6 % (0.0-10.0); %Neutrophils 73.7 % (42.0-75.0); Mean Corpuscular HGB CONC 30.6 g/dL (32.0-36.0); Mean Corpuscular Hemoglobin 29.6 pg (27.0-31.0); Mean Corpuscular Volume 96.6 fL (78.0-98.0); Mean Platelet Volume 7.4 fL (7.4-10.4); Platelet Count 147 thou/uL (130-400); RBC Distribution Width 15.6 % (11.5-14.5); Red Blood Cell (RBC) Count 3.03 mill/uL (4.20-5.40); White Blood Cell (WBC) Count 4.7 thou/uL (4.8-10.8)
[2021-10-22 19:29] LABS: ALT (SGPT) 64 U/L (8-55); AST (SGOT) 32 U/L (5-34); Albumin 3.5 g/dL (3.5-5.0); Alkaline Phosphatase 96 U/L (40-110); Anion Gap 14 mmol/L (10-20); BUN (Urea Nitrogen) 61 mg/dL (9.8-20.1); Bilirubin, Total 0.3 mg/dL (0.2-1.2); Calc. Creatinine Clearance 0 mL/min (70-130); Calcium 8.7 mg/dL (7.8-10.44); Carbon Dioxide 16 mmol/L (22-29); Chloride 113 mmol/L (98-107); Globulin 2.4 g/dL (2.4-3.5); Glucose 140 mg/dL (70-105); Potassium 4.7 mmol/L (3.5-5.1); Protein, Total 5.9 g/dL (6.0-8.3); Sodium 138 mmol/L (136-145)
[2021-10-22 21:16] LABS: SARS-CoV-2 NAA Rapid Test DETECTED (NotDetected)
== END 2021-10-22 22:22 | disposition short-term general hospital (02) ==
LOC: NAV ERS 18:17
DX: U07.1 COVID-19 (principal); J12.82 Pneumonia due to coronavirus disease 2019; N28.9 Disorder of kidney and ureter, unspecified; D64.9 Anemia, unspecified; I10 Essential (primary) hypertension; E78.5 Hyperlipidemia, unspecified; E11.9 Type 2 diabetes mellitus without complications; Z79.82 Long term (current) use of aspirin; Z79.4 Long term (current) use of insulin
CPT/HCPCS: 36415; 71045; 80053; 85025; 87040; 93005; 96365; 96366; J1956; Q0162; U0002

== ENCOUNTER 2021-11-19 14:00 | Emergency (ER) | payer OTHER | END 2021-11-19 14:33 | disposition home or self-care (01) | LOC: NAV ERS 14:00 | DX: L02.31 Cutaneous abscess of buttock (principal); I10 Essential (primary) hypertension; E78.5 Hyperlipidemia, unspecified; E11.9 Type 2 diabetes mellitus without complications; D64.9 Anemia, unspecified; Z86.718 Personal history of other venous thrombosis and embolism; Z79.4 Long term (current) use of insulin; Z79.82 Long term (current) use of aspirin; Z79.01 Long term (current) use of anticoagulants; Z79.899 Other long term (current) drug therapy | CPT/HCPCS: 99282 ==

== ENCOUNTER 2022-08-01 19:18 | Emergency (ER) | payer OTHER ==
[2022-08-01 20:17] LABS: #Basophils 0.1 thou/uL (0.0-0.2); #Eosinphils 0.5 thou/uL (0.0-0.7); #Lymphocytes 1.3 thou/uL (1.20-3.40); #Monocytes 0.6 thou/uL (0.11-0.59); #Neutrophils 5.9 thou/uL (1.40-6.50); %Basophils 0.6 % (0.0-1.0); %Eosinophils 6.4 % (0.0-10.0); %Lymphocytes 15.6 % (21.0-51.0); %Monocytes 7.6 % (0.0-10.0); %Neutrophils 69.8 % (42.0-75.0); Mean Corpuscular HGB CONC 30.8 g/dL (32.0-36.0); Mean Corpuscular Hemoglobin 27.7 pg (27.0-31.0); Mean Platelet Volume 4.9 fL (7.4-10.4); Platelet Count 225 thou/uL (130-400); RBC Distribution Width 13.2 % (11.5-14.5); Red Blood Cell (RBC) Count 2.51 mill/uL (4.20-5.40); White Blood Cell (WBC) Count 8.5 thou/uL (4.8-10.8)
[2022-08-01 20:28] LABS: ALT (SGPT) 21 U/L (8-55); AST (SGOT) 14 U/L (5-34); Albumin 3.6 g/dL (3.5-5.0); Alkaline Phosphatase 88 U/L (40-110); Anion Gap 18 mmol/L (10-20); BUN (Urea Nitrogen) 76 mg/dL (9.8-20.1); Bilirubin, Total 0.3 mg/dL (0.2-1.2); Calc. Creatinine Clearance 0 mL/min (70-130); Calcium 9.2 mg/dL (7.8-10.44); Carbon Dioxide 21 mmol/L (22-29); Chloride 110 mmol/L (98-107); Estimated GFR 17; Globulin 2.6 g/dL (2.4-3.5); Glucose 111 mg/dL (70-105); Potassium 4.8 mmol/L (3.5-5.1); Protein, Total 6.2 g/dL (6.0-8.3); Sodium 144 mmol/L (136-145)
[2022-08-01] MEDS ORDERED: Azithromycin 250 MG TAB ONE (21:09)
== END 2022-08-01 21:26 | disposition home or self-care (01) ==
LOC: NAV ERS 19:18
DX: J20.9 Acute bronchitis, unspecified (principal); D64.9 Anemia, unspecified; M79.89 Other specified soft tissue disorders
CPT/HCPCS: 36415; 71046; 80053; 85025; 85379